=== PATIENT | male | born 1945 | race Caucasian/White ===

== ENCOUNTER 2021-10-29 09:24 | Emergency (ER) | payer MEDICARE, SELFPAY ==
[2021-10-29 09:33] VITALS: BP 157/78; PULSE 71; RESP 18; TEMP 36.3; O2SAT 98; BMI 23.7
[2021-10-29 10:38] LABS: Strep A DNA Probe* Not Detected (No Detected)
[2021-10-29 12:14] LABS: SARS PCR* Negative SARS-CoV-2 (Negative)
--- NOTE | 2021-10-29 12:56 | ED.NURSE ---
COVID test negative. Patient aware we would only call if positive. No further action needed.
--- NOTE | 2021-10-29 13:22 | ED_ITS ---
HPI - General Adult General Date Seen: 10/29/21 Chief complaint: Sore Throat Stated complaint: Likely strep Time Seen by Provider: 10/29/21 09:43 Source: patient History of Present Illness HPI narrative: Patient is a 76-year-old male who presents with sore throat, congestion, cough. He did travel last week out [place]. He and his family all did COVID tests when they went out there and then again on the way back. He has been sick for few days and did another COVID test yesterday. All of his tests have been negative. No fever. No shortness of breath or chest pain. He started to worry he might have strep. He does have a pacemaker and thought he should just get this checked out. He has been taking Tylenol and has been using [place], which help a little with his sore throat. Swallowing okay. Able to eat and drink. Vaccinated for COVID. Does take Eliquis for atrial fibrillation. Related Data Home Medications Medication Instructions Recorded Confirmed apixaban 5 mg tablet (Eliquis) 5 mg PO Q12H 10/29/21 10/29/21 rosuvastatin 10 mg tablet 10 mg PO DAILY 10/29/21 10/29/21 Allergies Allergy/AdvReac Type Severity Reaction Status Date / Time No Known Allergies Allergy Unverified 10/29/21 09:37 Review of Systems Status of ROS: Reports: 6 or more systems reviewed and unremarkable except as noted in History and below [facility] Medical History Anticoagulation goal of INR 2 to 3 Atrial fibrillation Encounter for routine history and physical examination of adult Enteritis History of gastroesophageal reflux (GERD) History of small bowel obstruction Surgical History History of colonoscopy Status post placement of cardiac pacemaker Social History Smoking Status: Never smoker How often do you have a drink containing alcohol: never How often do you have six or more drinks on one occasion: Never AUDIT-C Alcohol total score: 0 Non-prescribed substance use: denies use Exam Narrative: Exam Narrative: Vital signs as noted above. In general, an alert, well-appearing patient. Head: Normocephalic, atraumatic. Eyes: Pupils are equal reactive. Extraocular movements are full. Conjunctivae are normal. ENT: Mucous membranes are moist. Throat is normal. Neck: Supple without lymphadenopathy. Heart: Regular rate and rhythm. No murmur or rub. Lungs: Clear bilaterally. No increased work of breathing, crackles or wheezes. Affect: Normal. Skin: Warm and dry. Well perfused. Const: Vital Signs, click to edit/add: Vital Signs - 24 hr 10/29/21 09:33 Temperature 97.3 F L Pulse Rate [Pulse Oximeter] 71 Respiratory Rate 18 Blood Pressure [Ri ght Upper Arm] 157/78 H Pulse Oximetry 98 Course Course Hospital Course: Rapid strep is negative. We discussed potential additional COVID testing, although with 3- tests it is a little less likely. Initially I had suggested we might do 1 because of the issue of Paxlovid, but then on hearing that he takes Eliquis, that is not an option for him. So, discussed that he could do another test at home in another couple of days if he just wants to make sure about the COVID status, but it is less time sensitive. For now, would recommend supportive care at home, continue with Tylenol, throat lozenges etc.. If he has worsening pain, inability to swallow secretions, fever, etcetera, return for re- evaluation. Otherwise expect improvement over the next few days to week. Vital Signs Vital signs: Initial Vital Signs Temperature 97.3 F L 10/29/21 09:33 Temperature Source Temporal Artery Scan 10/29/21 09:33 Pulse Rate 71 10/29/21 09:33 Respiratory Rate 18 10/29/21 09:33 Blood Pressure 157/78 H 10/29/21 09:33 Blood Pressure Mean 104 10/29/21 09:33 Blood Pressure Position Sitting 10/29/21 09:33 Pulse Oximetry 98 10/29/21 09:33 Oxygen Delivery Method 10/29/21 09:33 Vital Signs Temperature 97.3 F L 10/29/21 09:33 Pulse Rate 71 10/29/21 09:33 Respiratory Rate 18 10/29/21 09:33 Blood Pressure 157/78 H 10/29/21 09:33 Pulse Oximetry 98 10/29/21 09:33 Temperature 97.3 F L 10/29/21 09:33 Pulse Rate 71 10/29/21 09:33 Respiratory Rate 18 10/29/21 09:33 Blood Pressure 157/78 H 10/29/21 09:33 Pulse Oximetry 98 10/29/21 09:33 Medical Decision Making Lab Data Labs: Lab Results 10/29/21 10/29/21 Range/Units 09:42 10:48 SARS-CoV-2 (PCR) Negative SARS-CoV-2 (Negative) Group A Strep DNA Not Detected (No Detected) Discharge Plan Discharge Clinical Impression: Sore throat Patient Disposition: Home, Self-Care Condition: Stable Instructions: Pharyngitis (ED) Additional Instructions: Tylenol, [place], etcetera as needed symptomatically. Anticipate improvement over the next several days to week. Return for worsening symptoms such as severe pain, unilateral pain, fever. Rapid strep is negative. Symptoms are likely viral. Prescriptions: No Action Eliquis 5 mg tablet 5 mg PO Q12H 0RF Label Comments: TAKE 1 TABLET BY MOUTH TWICE DAILY rosuvastatin 10 mg tablet 10 mg PO DAILY 0RF Label Comments: TAKE 1 TABLET BY MOUTH AT BEDTIME Follow Up/Referrals: Jessee Jon MD [Primary Care Provider] - Stand Alone Forms: MyHealth Info Instructions
== END 2021-10-29 10:55 | disposition home or self-care (01) ==
PROVIDERS: Emergency Provider Emergency Medicine; PCP Family Medicine
DX: J02.9 Acute pharyngitis, unspecified (principal)
CPT/HCPCS: 87635; 87651; 99282; 99283

== ENCOUNTER 2021-11-10 09:34 | Outpatient (CLI) | payer MEDICARE, SELFPAY ==
[2021-11-10 09:53] LABS: Basophils Absolute Auto 0.06 K/uL (0.00-0.30); Basophils Percent Auto 0.7 % (0.0-3.0); Eosinophils Absolute Auto 0.16 K/uL (0.00-0.50); Eosinophils Percent Auto 1.9 % (0.0-7.0); Hematocrit 43.4 % (37.0-53.0); Hemoglobin* 14.1 gm/dL (13.5-17.5); Lymphocytes Percent Auto 14.6 % (20-44); Mean Corpuscular HGB Conc 33 gm/dL (32-36); Mean Corpuscular Hemoglobin 27 pg (26-34); Mean Corpuscular Volume 83 fL (80-100); Monocytes Absolute Auto 0.81 K/UL (0.00-0.90); Monocytes Percent Auto 9.8 % (0.0-11.0); Platelet Count* 229 K/uL (140-440); Red Blood Count 5.22 m/uL (4.30-5.90)
[2021-11-10 10:03] LABS: Slide Review Reflex No
[2021-11-10 14:52] LABS: Albumin* 4.4 g/dL (3.3-5.0); Chloride* 99 mmol/L (96-114)
[2021-11-10 14:53] LABS: Potassium* 4.6 mmol/L (3.6-5.1); Sodium* 137 mmol/L (135-149)
[2021-11-10 14:55] LABS: Alkaline Phosphatase* 121 U/L (40-150); Aspartate Amino Transferase* 33 U/L (12-35); Bilirubin Total* 1.2 mg/dL (0.1-1.5); Blood Urea Nitrogen* 20 mg/dL (7-30); Carbon Dioxide* 28 mmol/L (20-32); Cholesterol* 106 mg/dL (90-199); Creatinine* 1.1 mg/dL (0.5-1.5); Estimated Glomerular Filt Rate 70 ml/min; Glucose* 109 mg/dL (60-115); Triglycerides* 57 mg/dL (40-149)
[2021-11-10 14:56] LABS: Alanine Aminotransferase* 23 U/L (4-50); Calcium* 9.3 mg/dL (8.4-10.6); HDL Cholesterol* 41 mg/dL (>=40); LDL Cholesterol Calculated 54 mg/dL (<100)
[2021-11-10 15:27] LABS: PSA Screen* 0.51 ng/mL (0.10-4.00)
== END 2021-11-10 09:35 | disposition home or self-care (01) ==
PROVIDERS: PCP Family Medicine; Visit Provider Family Medicine
DX: Z00.00 Encounter for general adult medical examination without abnormal findings (principal); E78.00 Pure hypercholesterolemia, unspecified; E78.5 Hyperlipidemia, unspecified; I10 Essential (primary) hypertension; I48.91 Unspecified atrial fibrillation; Z12.5 Encounter for screening for malignant neoplasm of prostate
CPT/HCPCS: 80053; 80061; 84153; 85025

== ENCOUNTER 2022-03-05 09:43 | Outpatient (CLI) | payer MEDICARE, SELFPAY | END 2022-03-05 09:44 | disposition home or self-care (01) | PROVIDERS: PCP Family Medicine; Visit Provider Internal Medicine Cardiovascular Disease | DX: I25.10 Atherosclerotic heart disease of native coronary artery without angina pectoris (principal); I51.7 Cardiomegaly; I07.1 Rheumatic tricuspid insufficiency | CPT/HCPCS: 93306 ==

== ENCOUNTER 2023-05-20 13:30 | Outpatient (CLI) | payer MEDICARE, SELFPAY | END 2023-05-20 13:31 | disposition home or self-care (01) | PROVIDERS: PCP Family Medicine; Visit Provider Family Medicine | DX: Z12.5 Encounter for screening for malignant neoplasm of prostate (principal); E78.00 Pure hypercholesterolemia, unspecified; I10 Essential (primary) hypertension | CPT/HCPCS: 80053; 80061; G0103 ==

== ENCOUNTER 2024-05-22 12:46 | Outpatient (CLI) | payer MEDICARE, SELFPAY | END 2024-05-22 12:47 | disposition home or self-care (01) | PROVIDERS: PCP Family Medicine; Visit Provider Family Medicine | DX: E78.00 Pure hypercholesterolemia, unspecified (principal); I10 Essential (primary) hypertension; I48.91 Unspecified atrial fibrillation; R35.1 Nocturia; N40.1 Benign prostatic hyperplasia with lower urinary tract symptoms; R53.83 Other fatigue; Z95.0 Presence of cardiac pacemaker; Z12.5 Encounter for screening for malignant neoplasm of prostate | CPT/HCPCS: 80053; 80061; 84443; G0103 ==

== ENCOUNTER 2024-08-02 09:55 | Outpatient (CLI) | payer MEDICARE, SELFPAY | END 2024-08-02 09:56 | disposition home or self-care (01) | LOC: NFLDREF 08-07 22:39 | PROVIDERS: PCP Family Medicine; Referring Provider Family Medicine; Visit Provider Family Medicine | DX: R94.6 Abnormal results of thyroid function studies (principal) | CPT/HCPCS: 84443 ==

== ENCOUNTER 2024-09-19 19:57 | Emergency (ER) | payer MEDICARE, SELFPAY ==
--- OUTSIDE RECORDS SUMMARY | 2020-08-13 06:48 | XMS_ITS | Continuity of Care Document ---
Author Organization [facility] Address [address] [address] [place] [address] Phone Care Team Providers Care Survey Rodman Name Role Phone No Information Unavailable Unavailable Allergies, Adverse Reactions, Alerts Substance Reaction Status Criticality No Known Allergies Active No Inform ation Medications Medication Instructions Dosage Effective Dates (start - stop) Status Comments Eliquis 5 mg tablet take 1 tablet by oral route 2 times every day 5 MG - Active propafenone 225 mg tablet take 1 tablet by oral route every 8 hours 225 MG - Active rosuvastatin 10 mg tablet take 1 tablet by oral route every day 10 MG - Active lisinopril 5 mg tablet take 1 tablet by oral route every day 5 MG - Active omeprazole 20 mg capsule,delayed release take 1 Capsule by Oral route every 4 weeks before breakfast 20 MG - No Longer Active MiralaxBisacodylMagCit Colon Prep Use as directed - No Longer Active Procedures Procedure Date Colonoscopy Flex; W/bx /mx Level Iv-surg Path Gross/micro 21 Colonoscopy Flex; W/remov Les- 16 Colonoscopy Flex; W/bx 1/mx Level Iv-surg Path Gross/micro Advance Directives Directive Yes / No Effective Date File Name No Information Encounters Encounter Description Practice Location Reason(s) For Visit Diagnoses Date Provider Providers Copied on Encounter [facility], [address] [address], [place], [id number], [place] tel:[phone] No Information No Information [facility], [address] [address], [place], [id number], [place] tel:[phone] [facility] Dvrtclos of lg int w/o perforation or abscess w/o bleedingPolyp of colonEncounter for screening for malignant neoplasm of colonPersonal history of colonic polypsBenign neoplasm of ascending colon Nixon Cedeño. [address] [facility], [facility] [address], [place], [place], [id number], [place]. tel:[phone] Referring Provider: Jessee Jon MD, [address] [place], [address]. tel:[phone] [facility], [address] [address], [place], [id number], [place] tel:[phone] [facility] No Information Jay Rodriguez. [address] [facility], [facility] [address], [place], [id number], [place]. tel:[phone] [facility], [address] [address], [place], [id number], [place] tel:[phone] [facility] Colon polypsPersonal history of colonic polypsDiverticul osis of colon without diverticulitisEn counter for screening for malignant neoplasm of colonBenign neoplasm of transverse colonPolyp of colonPersonal history of colonic polyps 6 No Information Referring Provider: Yaniv zavala, [address], [place], [address]. tel:[phone] [facility], [address] [address], [place], [id number], [place] tel:[phone] [facility] No Information 6 Ottoniel Trammell. [address] [facility], [address], [place], [id number], [place]. tel:[phone] Referring Provider: Yaniv zavala, [address], [place], [address]. tel:[phone] Family History Family Member Type Diagnosis Age At Onset No Information Immunizations Vaccine Date Status Comments SARS-COV-2 (COVID-19) vaccin e, mRNA, spike protein, LNP, preservative free, 100 mcg/0.5mL dose administered Note: [facility] bi-direct ional interface ; Source: Other Registry SARS-COV-2 (COVID-19) vaccin e, mRNA, spike protein, LNP, preservative free, 100 mcg/0.5mL dose administered Note: [facility] bi-direct ional interface ; Source: Other Registry influenza, high-dose seasona l, quadrivalent, .7mL dose, preservative free administered Note: [facility] bi-direct ional interface ; Source: Other Registry influenza, high dose seasona l, preservative-free administered Note: [facility] bi-direct ional interface ; Source: Other Registry influenza, high dose seasona l, preservative-free administered Note: [facility] bi-direct ional interface ; Source: Other Registry influenza, high dose seasona l, preservative-free administered Note: [facility] bi-direct ional interface ; Source: Other Registry influenza, high dose seasona l, preservative-free administered Note: [facility] bi-direct ional interface ; Source: Other Registry Afluria Qd administered Note: [facility] bi-directional interface ; Source: Other Registry influenza, high dose seasona l, preservative-free administered Note: [facility] bi-direct ional interface ; Source: Other Registry Pneumovax 23 administered Note: [facility] bi-d irectional interface ; Source: Other Registry Influenza, seasonal, injecta ble, preservative free administered Note: [facility] bi-direct ional interface ; Source: Other Registry tetanus toxoid, reduced diphtheria toxoid, and acellular pertussis vaccine, adsorbed administered Note: [facility] b i-directional interface ; Source: Other Registry Influenza, seasonal, injecta ble, preservative free administered Note: [facility] bi-direct ional interface ; Source: Other Registry Influenza, seasonal, injectable administe red Note: [facility] bi- directional interface ; Source: Other Registry Influenza, seasonal, injecta ble, preservative free administered Note: [facility] bi-direct ional interface ; Source: Other Registry Novel [id number], all formulations administered Note: [facility] bi-direct ional interface ; Source: Other Registry Pneumovax 23 administered Note: [facility] bi-d irectional interface ; Source: Other Registry Influenza, seasonal, injectable administe red Note: [facility] bi- directional interface ; Source: Other Registry yellow fever vaccine administered Note: [facility] bi-directional interface ; Source: Other Registry poliovirus vaccine, inactivated administe red Note: [facility] bi- directional interface ; Source: Other Registry typhoid Vi capsular polysaccharide vaccine administered Note: [facility] bi-dir ectional interface ; Source: Other Registry meningococcal polysaccharide vaccine (MPSV4) administered Note: [facility] bi-direct ional interface ; Source: Other Registry Payers Payer name Insurance type Covered democrat ID Authoriza tion(s) No Information Social History Type Description Quantity Date Captured Comments Sex Male Smoking Status No Information Chief Complaint And Reason For Visit No Information Reason For Referral Reason For Referral No Information History Of Present Illness Encounter Date Complaint History Of Prese nt Illness No Information Functional Status Date Functional Assessmen t No Information Instructions Date Instruction Additional Infor mation Diverticulosis/Diverticulitis Re lated to Polyp of colon Colon Polyps Related to Polyp of colon Colon Cancer Prevention Related to Polyp of colon High Fiber Diet Related to Polyp of colon Colon Cancer Prevention Related to Colon polyps Colon Polyps Related to Colon polyps Diverticulosis/Diverticulitis Re lated to Colon polyps High Fiber Diet Related to Colon polyps Hemorrhoids Related to Colon polyps Assessments Type Assessment Date No Information Patient Care Teams Name Effective Dates (start - stop) Status Members No Information
--- OUTSIDE RECORDS SUMMARY | 2020-08-13 06:48 | XMS_ITS | Continuity of Care Document ---
Author Organization [facility] Address [address] [address] [place] [address] Phone Care Team Providers Care Gas Operations Superintendent Name Role Phone No Information Unavailable Unavailable [...] Encounter [facility], [address] [address], [place], [id number], [place] tel:[phone] No Information No Information [facility], [address] [address], [place], [id number], [place] tel:[phone] [facility] Dvrtclos of lg int w/o perforation or abscess w/o bleedingPolyp of colonEncounter for screening for malignant neoplasm of colonPersonal history of colonic polypsBenign neoplasm of ascending colon Nixon Cedeño. [address] [facility], [facility] [address], [place], [place], [id number], [place]. tel:[phone] Referring Provider: Jessee Jon MD, [address] [place], [address]. tel:[phone] [facility], [address] [address], [place], [id number], [place] tel:[phone] [facility] No Information Jay Rodriguez. [address] [facility], [facility] [address], [place], [id number], [place]. tel:[phone] [facility], [address] [address], [place], [id number], [place] tel:[phone] [facility] Colon polypsPersonal history of colonic polypsDiverticul osis of colon without diverticulitisEn counter for screening for malignant neoplasm of colonBenign neoplasm of transverse colonPolyp of colonPersonal history of colonic polyps 6 No Information Referring Provider: Yaniv zavala, [address], [place], [address]. tel:[phone] [facility], [address] [address], [place], [id number], [place] tel:[phone] [facility] No Information 6 Ottoniel Trammell. [address] [facility], [address], [place], [id number], [place]. tel:[phone] Referring Provider: Yaniv zavala, [address], [place], [address]. tel:[phone] Family History Family Member Type Diagnosis Age [...] ional interface ; Source: Other Registry Novel [id number], all formulations administered Note: [facility] bi-direct ional [...] Registry Payers Payer name Insurance type Covered republican ID Authoriza tion(s) No Information Social History [...]
--- OUTSIDE RECORDS SUMMARY | 2024-09-19 19:59 | XMS_ITS | Clinical Summary ---
Author Organization [facility] Address [address] [place] [address] Care Team Providers Care Education Spec Name Role Phone Jessee Jon MD Primary Care Provider [phone] Allergies No known active allergies Medications tadalafiL (CIALIS) 10 mg tablet Take 10 mg by mouth once daily if needed. 02/21/20 24 Active apixaban (ELIQUIS) 5 mg tabletIndications :Paroxysmal atrial fibrillation (HC) Take 1 Tablet (5 mg) by mouth two times daily. 180 Tablet 6 03/02/20 24 Active sotaloL 80 mg tabletIndications :Paroxysmal atrial fibrillation (HC),Atrial fibrillation, unspecified type (HC) Take 0.5 Tablets (40 mg) by mouth every 12 hours. additional refills with labs and office visit 08/09/2024 90 Tablet 3 08/10/19 25 Active rosuvastatin 10 mg tabletIndications :Hyperlipidemia, unspecified hyperlipidemia type TAKE 1 TABLET BY MOUTH AT BEDTIME 90 Tablet 3 08/29/19 25 Active rosuvastatin (Crestor) 10 mg tabletIndications :Hyperlipidemia, unspecified hyperlipidemia type Take 1 Tablet (10 mg) by mouth at bedtime. 90 Tablet 1 03/07/20 24 2024 Discontinued Active Problems Problem Noted Date Diagnosed Date Tricuspid valve insufficiency 03/13/2021 CKD (chronic kidney disease) stage 3, GFR 30-59 ml/min 09/29/2019 Normocytic anemia 09/29/2019 Paroxysmal atrial fibrillation 09/28/2019 Symptomatic bradycardia 09/28/2019 Status post ablation of atrial fibrillation 09/03 Hypertension Dyslipidemia Pacemaker Encounters Date Type Department Care Team Description 09/19/2024 Telephone [facility] [address] [place] [phone] Heidi Messina, RN Follow Up; Device Check 08/28/2024 Refill [facility] [address] [place] [phone] Ashutosh Carranza MD Refill Request (Rosuvastatin) 08/20/2024 Telephone [facility] [address] [place] [phone] Ashutosh Carranza MD Medication Management 08/09/2024 9:30 AM CDT Office Visit [facility] [address] [facility] [address] [place] [address] Ashutosh Carranza MD CV Electrophysiology Est (F/u (PAF) Device chk prior. Pt states doing well. Unaware of afib episodes) 08/09/2024 Travel 08/04/2024 Travel 07/18/2024 Refill [facility] [address] [place] [address] Ashutosh Carranza MD Refill Request (Sotalol) 07/18/2024 Telephone [facility] [address] [place] [phone] Ashutosh Carranza MD Medication Management (Sotalol ) 07/18/2024 Refill [facility] [address] [place] [phone] Ashutosh Carranza MD Refill Request (Sotalol) 07/02/2024 Telephone [facility] [address] [place] [phone] Heidi Messina RN Follow Up 06/25/[address] [address] Bassem Benavidez, RN Device Check from Last 3 Months Family History Medical History Relation Name Comments Arthritis Brother Diabetes Father No Known Problems Maternal Grandfather No Known Problems Maternal Grandmother Valvular heart disease Mother Aorti c stenosis No Known Problems Paternal Grandfather No Known Problems Paternal Grandmother Heart Disease Paternal Uncle Cancer-breast Sister 1 Cancer-breast Sister 2 Relation Name Status Comments Brother Alive Father Maternal Grandfather Maternal Grandmother Mother Paternal Grandfather Paternal Grandmother Paternal Uncle Sister 1 Alive Sister 2 Alive Social History Tobacco Use Types Packs/Day Years Used Date Smoking Tobacco: Former Cigars Smokeless Tobacco: Never Tobacco Cessation:Counseling Given: Not Answered Comments:20 years ago Alcohol Use Standard Drinks/Week Comments Not Currently 0 (1 standard drink = 0.6 oz pure alcohol) Stopped drinking when his atrial fibrillation started Financial Resource Strain Answer Date R ecorded Difficulty of Paying Living Expenses Not on file 04/04/2021 Difficulty of Paying Living Expenses Not on file 04/04/2021 Interpersonal Safety Answer Date Record ed Are you being hit, kicked, p ushed or yelled at (see row info)? No 03/02/2024 Interpersonal Safety Abuse 12 - 18 Not on file 03/02/2024 Interpersonal Safety Ambulatory Vulnerability No t on file 03/02/2024 Sex and Gender Information Value Date Recorded Sex Assigned at Not on file Legal Sex Male 11:19 AM CDT Gender Identity Not on file Sexual Orientation Not on file Obstetrics History Last Filed Vital Signs Vital Sign Reading Time Taken Comments Blood Pressure 138/84 08/09/2024 8:57 AM CDT Pulse 83 08/09/2024 8:57 AM CDT Temperature 36.3 C (97.3 F) 03/02/2024 1:00 PM [facility] Respiratory Rate 18 03/02/2024 1:00 PM [facility] Oxygen Saturation 98% 08/09/2024 8:57 AM CDT Inhaled Oxygen Concentration - - Weight 82.1 kg (181 lb) 08/09/2024 8:57 AM CDT Height 180.3 cm (5' 11) 08/09/2024 8:57 AM CDT Body Mass Index 25.24 08/09/2024 8:57 AM CDT Plan of Treatment Upcoming Encounters Date Type Department Care Team (Late st Contact Info) Description 09/27/2024 Cardiac Device Check [facility] [place] [phone] 10/18/2024 2:00 PM CDT Orders Only [facility] [place] [address] [place] [address] 11/15/2024 Cardiac Device Check [facility] [place] [phone] Health Maintenance Due Date Last Done Comments Tdap 1957 Depression screening for age 12+ 1958 Hepatitis C screening for age 18-79 1964 Pneumococcal series for age 50+ (1 of 2 - PCV) 1965 Tetanus booster 1966 Zoster (shingles) series for age 50+ (1 of 2) 1996 Medicare Wellness for age 65+ 06/27/2011 RSV vaccine for adults or (1 - 1-dose 75+ series) 2021 COVID-19 vaccine series ( season) 2024 01/15/2024, 01/14/2023, 01/06/2022, Additional history exists Influenza Vaccine (Season Ended) 2024 BMI (ht and wt on same day) for age 18+ 08/09/2025 08/09/2024, 03/24/2023, 01/11/2023, Additional history exists Hepatitis B series for 19+ Aged Out N o longer eligible based on patient's age to complete this topic Procedures Procedure Name Priority Date/Time Associated Diagnosis Comments EKG 12 LEAD Routine 08/09/2024 8:57 AM CDT Paroxysmal atrial fibrillation (HC) Fitting or adjustment of cardiac pacemaker PACER VINCENZO DUAL CHAMBER WO REPROG Routine 08/09/2024 8:55 AM CDT Fitting or adjustment of cardiac pacemaker from Last 3 Months Results * EKG 12 LEAD (08/09/2024 8:57 AM CDT) Interpretation Atrial-paced rhythm Left axis deviation Right bundle branch block Moderate voltage criteria for LVH, may be normal variant ( R in aVL , Sokolow-Meng ) Anteroseptal infarct , age undetermined Abnormal ECG When compared with ECG of 02-Mar-2024 12:10, Electronic atrial pacemaker has replaced Electronic ventricular pacemaker Ventricular Rate 83 BPM Atrial Rate 83 BPM P-R Interval 176 ms QRS Duration 208 ms QT 476 ms QTc 559 ms P [place] degrees R [place] -39 degrees T [place] 53 degrees 08/09/2024 8:57 AM CDT 08/09/2024 5:25 PM CDT Ashutosh Carranza MD EKG ORD Final Resul t from Last 3 Months Insurance BLUE CROSS MEDICARE ADVANTAGE MR BLUE CROSS MEDICARE ADVANTAGE MR Advance Directives * Full Code (Latest Code Status on File) Date Activated Date Inactivated Comments 09/07/2022 1:33 PM 09/07/2022 8:44 PM Question Answer Comments Code Status Discussion: Reviewed Preferences * Full Code Date Activated Date Inactivated Comments 01/21/2022 4:33 PM 01/22/2022 1:17 PM Question Answer Comments Code Status Discussion: Reviewed Preferences * Full Code Date Activated Date Inactivated Comments 09/14/2021 2:43 PM 09/15/2021 5:31 PM Question Answer Comments Code Status Discussion: Reviewed Preferences * Full Code Date Activated Date Inactivated Comments 05/28/2021 11:24 AM 05/28/2021 5:16 PM Question Answer Comments Code Status Discussion: Reviewed Preferences * Full Code Date Activated Date Inactivated Comments 09/28/2019 9:21 PM 10/01/2019 6:59 PM Question Answer Comments Code Status Discussion: Discussed Care Teams Education Spec Relationship Specialty Start Date End Date Jessee Jon MD [address] [place] [address] PCP - General Family Practice 02/29/24
[2024-09-19 20:02] VITALS: BP 150/71; PULSE 73; RESP 16; TEMP 36.8; O2SAT 96; BMI 24.3
--- NOTE | 2024-09-19 20:25 | CRLHL7_ITS ---
For Patients: As a result of the Cures Act, medical imaging exams and procedure reports are released immediately into your electronic medical record. You may view this report before your referring provider. If you have questions, please contact your health care provider. INDICATION: Cough. TECHNIQUE: Chest radiographs, 2 views. COMPARISON: Chest radiographs 09/28/2019. FINDINGS: Lines/devices: Left anterior chest wall pacemaker pulse generator. Cardiovascular/Mediastinum: Normal heart size. Unremarkable. Lungs: No focal consolidation. Airways: Trachea remains midline. Pleura: No pleural effusions or pneumothorax. Bones: No acute osseous abnormalities. Upper abdomen: Unremarkable. IMPRESSION: No acute cardiopulmonary process. Dictated by Adriel Coreas MD @ 09/19/2024 9:02:25 PM (Electronically Signed)
--- NOTE | 2024-09-19 20:30 | ED_ITS ---
HPI - General Adult General Date Seen: 09/19/24 Chief complaint: Cough Stated complaint: COVID+ Time Seen by Provider: 09/19/24 20:19 Source: patient Mode of arrival: ambulatory Limitations: no limitations History of Present Illness HPI narrative: Patient is a 79-year-old male concerned about developing pneumonia from COVID. He states for the past day he has been having some generalized viral symptoms. Has been having sinus pressure, rhinorrhea. Has also been having a wet cough and generalized achiness. Took Tylenol today at 15:00. States when he woke up he has sore throat that has since resolved. Took to COVID test at home and both were positive please unsure if they were or not. States he gets some shortness of breath but it is no different than his baseline shortness of breath since his pacemaker placement 3 years ago. Denies any chest pain. Denies lightheadedness, dizziness, weakness, numbness, abdominal pain, fevers, chills, diarrhea, constipation. No other concerns noted at this time. Related Data Home Medications ?Medication ?Instructions ?Recorded ?Confirmed apixaban 5 mg tablet (Eliquis) 5 mg PO Q12H 10/29/21 0 09/19/24 rosuvastatin 10 mg tablet 10 mg PO DAILY 10/29/2109/02 sotalol 80 mg tablet 40 mg PO BID 05/20/23 Previous Rx's ?Medication ?Instructions ?Recorded tadalafil 10 mg tablet (Cialis) 10 mg PO QDAY PRN sexu al activity 03/21/24 #14 tabs tadalafil 5 mg tablet (Cialis) 5 mg PO QDAY sexual act ivity #90 05/22/24 tabs Allergies Allergy/AdvReac Type Severity Reaction Status Date / Time No Known Allergies Allergy Verified 05/22/24 12:19 Review of Systems Status of ROS: Reports: 10 or more systems reviewed and unremarkable except as noted in History and below [facility] Medical History BPH associated with nocturia ?N40.1 - Benign prostatic hyperplasia with lower urinary tract symptoms (ICD- 10) ?R35.1 - Nocturia (ICD-10) Actinic keratosis ?L57.0 - Actinic keratosis (ICD-10) Folliculitis ?L73.9 - Follicular disorder, unspecified (ICD-10) History of small bowel obstruction ?Z87.19 - Personal history of other diseases of the digestive system (ICD-10) History of gastroesophageal reflux (GERD) ?Z87.19 - Personal history of other diseases of the digestive system (ICD-10) Enteritis ?K52.9 - Noninfective gastroenteritis and colitis, unspecified (ICD-10) Encounter for routine history and physical examination of adult ?Z00.00 - Encounter for general adult medical examination without abnormal findings (ICD-10) Atrial fibrillation ?I48.91 - Unspecified atrial fibrillation (ICD-10) Surgical History H/O right knee surgery (~1974) ?Z98.890 - Other specified postprocedural states (ICD-10) 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) ?Z96.651 - Presence of right artificial knee joint (ICD-10) Status post placement of cardiac pacemaker ?Z95.0 - Presence of cardiac pacemaker (ICD-10) History of colonoscopy ?Z98.890 - Other specified postprocedural states (ICD-10) Social History What is your current living situation?: I presently have a place to live In the past 12 months, utilities in danger of being shut off: no In past 12 months, lack of transportation kept you from medical appts, meetings, work, or getting things needed for daily living: no In the past 12 mos, have been you worried that your food would run out before you had money to buy more?: never true In the past 12 mos, the food you bought just didn't last and you didn't have money to buy more?: never true Smoking Status: Former smoker How often do you have a drink containing alcohol: never How often do you have six or more drinks on one occasion: Never AUDIT-C Alcohol total score: 0 Non-prescribed substance use: denies use How often does anyone, including family, friends and others, physically hurt you : never How often does anyone, including family, friends and others, threaten you with harm: never How often does anyone, including family, friends and others, scream or curse at you: never Exam Narrative: Exam Narrative: Const: Well-nourished, Well-developed, in no distress Eyes: PERRL, no conjunctival injection, and symmetrical lids HENT: Atraumatic external nose and ears. Moist mucous membranes. No tonsillar exudate, uvula midline Neck: Symmetric, trachea midline, No thyromegaly. CVS: RRR, No murmurs or gallops. Peripheral pulses 2+ and equal in all extremities RESP: Unlabored respiratory effort. Clear to auscultation bilaterally. GI: Nontender/Nondistended, No rebound or guarding. MSK:Extremities w/o deformity, Normal Active ROM Skin: Warm, Dry. No rashes or lesions. Neuro: Normal Muscle tone, No focal neurological deficits. Psych: Awake, Alert, & Oriented x3. Appropriate mood and affect. Const: Vital Signs, click to edit/add: Vital Signs - 24 hr 09/19/24 20:02 Temperature 98.2 F Pulse Rate [Pulse Oximeter] 73 Respiratory Rate 16 Blood Pressure [Ri ght Upper Arm] 150/71 H Pulse Oximetry 96 Oxygen Delivery Me thod Room Air Course Vital Signs Vital signs: Initial Vital Signs Temperature 98.2 F 09/19/24 20:02 Temperature Source Temporal Artery Scan 09/19/24 20:02 Pulse Rate 73 09/19/24 20:02 Respiratory Rate 16 09/19/24 20:02 Blood Pressure 150/71 H 09/19/24 20:02 Blood Pressure Mean 97 09/19/24 20:02 Blood Pressure Position Sitting 09/19/24 20:02 Pulse Oximetry 96 09/19/24 20:02 Oxygen Delivery Method Room Air 09/19/24 20:02 Vital Signs Temperature 98.2 F 09/19/24 20:02 Pulse Rate 73 09/19/24 20:02 Respiratory Rate 16 09/19/24 20:02 Blood Pressure 150/71 H 09/19/24 20:02 Pulse Oximetry 96 09/19/24 20:02 Oxygen Delivery Method Room Air 09/19/24 20:02 Temperature 98.2 F 09/19/24 20:02 Pulse Rate 73 09/19/24 20:02 Respiratory Rate 16 09/19/24 20:02 Blood Pressure 150/71 H 09/19/24 20:02 Pulse Oximetry 96 09/19/24 20:02 Oxygen Delivery Method Room Air 09/19/24 20:02 Medical Decision Making MDM Narrative Medical decision making narrative: Patient is 79-year-old male presenting to get a COVID swab and a chest x-ray. He is concerned he could be developing pneumonia and is unsure of his home COVID swabs were correct. We will we swab him. While still chest x-ray. He is over this having relatively minor symptoms. His sore throat has resolved and do not believe further evaluation is necessary. He is also not having any changes to her shortness of breath a and is not having any chest pain. Do not believe further lab work or EKG are necessary. Chest x-ray shows no acute concerning abnormalities. Viral swabs are COVID positive. He is stable will be discharged. Declined Paxlovid Lab Data Labs: Lab Results 09/19/24 Range/Units 20:15 SARS-CoV-2 (PCR) POSITIVE SARS-CoV-2 A (Negative) Influenza Type A (PCR) Negative PCR FLU A (Negative) Influenza Type B (PCR) Negative PCR FLU B (Negative) RSV (PCR) Negative PCR RSV (Negative) Imaging Data Chest x-ray: Radiologist's impression: No acute cardiopulmonary process. Dictated by Adriel Coreas MD @ 09/19/2024 9:02:25 PM Discharge Plan Discharge Clinical Impression: COVID Patient Disposition: Home, Self-Care Condition: Stable Instructions: COVID-19 (Coronavirus Disease 2019) (ED) Additional Instructions: Your COVID positive. Recommendations are to quarantine for 5 days from onset of symptoms and 72 hours the a fever. Return to emergency department for new or worsening symptoms. Prescriptions: No Action sotalol 80 mg tablet 40 mg PO BID tadalafil [Cialis] 5 mg tablet 5 mg PO QDAY Qty: 90 3RF Eliquis 5 mg tablet 5 mg PO Q12H Patient Comments: TAKE 1 TABLET BY MOUTH TWICE DAILY rosuvastatin 10 mg tablet 10 mg PO DAILY Patient Comments: TAKE 1 TABLET BY MOUTH AT BEDTIME tadalafil [Cialis] 10 mg tablet 10 mg PO QDAY PRN (Reason: sexual activity) Qty: 14 3RF Rx Instructions: administer approximately 30min before sexual activity; do not use more than 1 dose per 24hrs Follow Up/Referrals: Jessee Jon MD [Primary Care Provider, Family Practice] Stand Alone Forms: MyHealth Info Instructions
[2024-09-19 20:58] LABS: PCR FLU A Negative PCR FLU A (Negative); PCR FLU B Negative PCR FLU B (Negative); PCR RSV Negative PCR RSV (Negative); SARS PCR* POSITIVE SARS-CoV-2 (Negative)
== END 2024-09-19 21:47 | disposition home or self-care (01) ==
PROVIDERS: Emergency Provider Student in an Organized Health Care Education/Training Program; PCP Family Medicine
DX: U07.1 COVID-19 (principal)
CPT/HCPCS: 71046; 87631; 99283; 99284